=== PATIENT | male | born 1980 | race Caucasian/White ===

== ENCOUNTER 2018-11-18 22:57 | Emergency (ER) | payer MEDICAID, OTHER ==
[2018-11-18] MEDS ORDERED: Alum Hydrox/Mag Hydrox/Simeth 15 ML, Lidocaine 2% 15 ML PO ONE ×2 (23:56)
--- NOTE | 2018-11-19 00:03 | EDM.PDOC ---
ED HPI GENERAL MEDICAL PROBLEM - General Chief Complaint: Chest Pain Stated Complaint: CHEST PAIN Time Seen by Provider: 11/18/18 23:50 Source of Information: Reports: Patient History Limitations: Reports: No Limitations - History of Present Illness INITIAL COMMENTS - FREE TEXT/NARRATIVE: 37-year-old male has been having intermittent substernal chest pain over the last 3 days that he described as tightness. There are no aggravating or alleviating factors and it occurs randomly. He has had a prior history of similar chest pain about a year ago and was hospitalized in [place] for several days and had numerous cardiac studies done which were all negative. He also has a history of some syncope events. He does complain that he feels lightheaded at times over the last few days. Lower Middle Chest Pain Score (Numeric/FACES): 4 - Related Data Allergies Allergy/AdvReac Type Severity Reaction Status Date / Time No Known Allergies Allergy Verified 11/18/18 23:32 Home Meds: Home Meds Albuterol [Ventolin HFA] 1 puff INH ASDIRECTED 11/18/18 [History] busPIRone [Buspar] 15 mg PO TID 11/18/18 [History] Past Medical History Other Cardiovascular History: Was admitted to a tele unit to monitor for three days. Just LAD, fascicular block. Respiratory History: Reports: Other (See Below) Other Respiratory History: Questionable asthma - Past Surgical History Cardiovascular Surgical History: Reports: None Social & Family History - Tobacco Use Smoking Status *Q: Never Smoker Second Hand Smoke Exposure: No - Caffeine Use Caffeine Use: Reports: Coffee, Soda - Recreational Drug Use Recreational Drug Use: No ED ROS GENERAL - Review of Systems Review Of Systems: See Below Constitutional: Reports: No Symptoms Respiratory: Reports: No Symptoms Cardiovascular: Reports: Chest Pain, Lightheadedness. Denies: Blood Pressure Problem, Dyspnea on Exertion, Palpitations GI/Abdominal: Denies: Abdominal Pain, Black Stool, Bloody Stool, Nausea : Reports: No Symptoms ED EXAM, GENERAL - Physical Exam Exam: See Below Exam Limited By: No Limitations General Appearance: Alert, No Apparent Distress Respiratory/Chest: No Respiratory Distress, Lungs Clear, Normal Breath Sounds, Chest Non-Tender Cardiovascular: Normal Peripheral Pulses, Regular Rate, Rhythm, No Edema GI/Abdominal: Normal Bowel Sounds, Soft, Non-Tender Extremities: No Pedal Edema Course - Vital Signs Last Recorded V/S: Last Vital Signs Temp 36.9 C 11/18/18 23:42 Pulse 76 11/18/18 23:42 Resp 16 11/18/18 23:42 BP 158/88 H 11/18/18 23:42 Pulse Ox 100 11/18/18 23:42 - Orders/Labs/Meds Orders: Active Orders 24 hr Category Date Time Status EKG Documentation Completion [RC] ASDIRECTED Care 11/18/18 23:09 Active EKG 12 Lead [EK] Routine Ther 11/18/18 23:09 Ordered Meds: Medications Discontinued Medications Generic Name Dose Route Start Last Admin Trade Name Hipolito PRN Reason Stop Dose Admin Al Hydroxide/Mg Hydroxide 15 0 ml 11/18/18 23:56 11/19/18 00:09 ml/ Lidocaine HCl 15 ml PO 11/18/18 23:57 30 ml ONETIME ONE Administration Departure - Departure Time of Disposition: 00:45 Disposition: Home, Self-Care 01 Condition: Good Clinical Impression: Gastroesophageal reflux disease Instructions: Gastroesophageal Reflux Disease, Adult, [id number] Referrals: PCP,None [Primary Care Provider] - Forms: ED Department Discharge Additional Instructions: Zantac 150 mg every 12 hours as needed for reflux pain. Care Plan Goals: Follow-up with primary provider if symptoms not resolving in one week. - My Orders Last 24 Hours: My Active Orders 11/18/18 23:09 EKG Documentation Completion [RC] ASDIRECTED EKG 12 Lead [EK] Routine - Assessment/Plan Last 24 Hours: My Active Orders 11/18/18 23:09 EKG Documentation Completion [RC] ASDIRECTED EKG 12 Lead [EK] Routine
== END 2018-11-19 00:52 | disposition home or self-care (01) ==
LOC: JP.ED 22:57
DX: K21.9 Gastro-esophageal reflux disease without esophagitis (principal); R42 Dizziness and giddiness
CPT/HCPCS: 93005; 99284; A9270